=== PATIENT | female | born 1960 | race Caucasian/White ===

== ENCOUNTER 2020-09-06 03:48 | Emergency (ER) | payer OTHER, MEDICAID ==
[~2020-09-06] VITALS: Ht 177.8 cm; Wt 90.7 kg
--- NOTE | ~2020-09-06 | EMS ---
[facility] [address] [place] [address] EMS Patient Care Report Name: CURTIS DANIELS Room #: REG STANLEY Mehta#: [id number] Admission: 09/06/20 Attend Phys: Discharge: Date of : 56 Report #: [id number] THIS REPORT FOR: //name// Report Transmitted: 09/06/2020 03:55 EMS Care Summary [facility] MED-ACT Incident [id number] @ 09/06/2020 03:10 Incident Location [address] [place] [address] Patient CURTIS DANIELS Female, 60 Years 1960 Patient Address [address] [place] [id number] Patient History Chronic Obstructive Pulmonary Disease (COPD),Back Pain (Chronic), Patient Allergies Penicillin allergy,Adhesive Tape, Chief Complaint "I need my inhaler" Disposition Transported No Lights/[place] Reason Breathing Problem Transported To [facility] Narrative Complaint: "I need my inhaler" History: Pt reports that she drove over to her sons house early this morning to help him out and for unknown reasons, the patient became upset and began to have an anxiety attack. She reports that she was going to drive home ([facility] [address] [place] [address] EMS Patient Care Report Name: CURTIS DANIELS Room #: REG STANLEY Mehta#: [id number] Admission: 09/06/20 Attend Phys: Discharge: Date of : 56 Report #: [id number] to [facility]) so she could get her Albuterol inhaler and get a couple puffs of her inhaler. While on the way to her home (she was following her son), they were pulled over by PD. During the traffic stop, the patient reported that she needed her inhaler and that she was short of breath, so EMS was called. Assessment: Pt found sitting upright in drivers seat of her vehicle, complaining of shortness of breath and that she needs her inhaler. Pt has no obvious s / s of acute distress, no obvious s / s of trauma noted Rendered Treatment: Pt evaluated, history obtained, vitals assessed. Pt had a difficult time to not talking during EMS evaluation. Pt was requesting "a couple of puffs of an inhaler and I'll be fine". Pt was informed that we do not have inhalers and that we could take her to the ER for an evaluation, pt agreed and was assisted from her vehicle to the cot, secured and moved to unit. Transport: Vitals re-assessed, Oxygen administered, bio-com report to ER given. En route to the hospital, the patient reports that she is feeling better now that she is calmer and feeling like her anxiety was getting her tonight. Destination: Pt transported to [facility] ER via EMS. Pt care transferred to RN in ER room 10 with no changes en route. Pt reports that her daughter told her to go to [place] but she didn't care which hospital she went to. [facility] was on "high volume" so [place] was the hospital destination. Initial Vitals @03:51P: 84,R: 20,BP: 159/82,Pain: 0/10,GCS: 15,SpO2: 97,Revised Trauma: 12, @03:41P: 97,R: 18,BP: 169/81,SpO2: 97, @03:26P: 95,R: 22,BP: 141/68,SpO2: 93, Assessments @03:58MENTAL:Person Oriented,Time Oriented,Place Oriented,Event Oriented,SKIN:HEENT:Head/Face: No Abnormalities,Eyes: No Abnormalities,LUNG SOUNDS:General: No Abnormalities,ABDOMEN:General: No Abnormalities,PELVIS//GI:EXTREMITIES:Left Arm: No Abnormalities,Right Arm: No Abnormalities,Left Leg: No Abnormalities,Right Leg: No Abnormalities,PULSE:NEURO:No Abnormalities, Impression Anxiety reaction/Emotional upset Procedures @03:25Surgical Mask on PatientResponse: Unchanged@03:29Oxygen FlowRate: 4 Device: Nasal Cannula (NC) Response: ImprovedSucceeded Timeline 03:09,Call Received [address] [address] EMS Patient Care Report Name: CURTIS DANIELS Room #: REG STANLEY Mehta#: [id number] Admission: 09/06/20 Attend Phys: Discharge: Date of : 56 Report #: [id number] 03:09,Psap Call 03:10,Dispatched 03:12,En Route 03:16,On Scene 03:17,At Patient 03:25,Surgical Mask on Patient,Response: Unchanged 03:26,BP: 141/68 M,PULSE: 95,RR: 22 R,SPO2: 93 Ox,ETCO2: ,BG: ,PAIN: ,GCS: , 03:27,Depart Scene 03:29,Oxygen FlowRate: 4 Device: Nasal Cannula (NC) Response: ImprovedSucceeded, 03:41,BP: 169/81 M,PULSE: 97,RR: 18 R,SPO2: 97 Ox,ETCO2: ,BG: ,PAIN: ,GCS: , 03:44,At Destination 03:51,BP: 159/82 M,PULSE: 84,RR: 20 R,SPO2: 97 Ox,ETCO2: ,BG: ,PAIN: 0,GCS: 15, 04:03,Call Closed Disclaimer [email or web address] Copyright 2020 [employer] This EMS Care Summary contains data elements from the applicable legal record (which may be displayed differently). It is designed to provide pertinent information for the following purposes: continuity of care, clinical quality, and state data reporting. The complete legal record is available to ED staff and administrators of the receiving hospital in [employer]'s Patient Tracker. All data is provided "as is."
[2020-09-06] MEDS ORDERED: PROAIR HFA8.5 GM INH (04:30)
[2020-09-06] MEDS ORDERED: OXYCODONE HCL20 M1 PO (04:31)
[2020-09-06] MEDS ORDERED: FENTANYL1 EAC3 TOP (04:31)
[2020-09-06] MEDS ORDERED: SPIRIVA RESPIMAT4 G1 INH (04:31)
[2020-09-06] MEDS ORDERED: WIXELA 250-501 EACH INH (04:32)
[2020-09-06 05:00] VITALS: BP 122/80
== END 2020-09-06 05:00 | disposition home or self-care (01) ==
LOC: ER 03:48
DX: J44.9 Chronic obstructive pulmonary disease, unspecified (principal); R45.89 Other symptoms and signs involving emotional state; K08.89 Other specified disorders of teeth and supporting structures; Z88.0 Allergy status to penicillin; Z91.048 Other nonmedicinal substance allergy status; Z79.899 Other long term (current) drug therapy